=== PATIENT | male | born 1930 | race Caucasian/White ===

== ENCOUNTER 2016-07-28 21:31 | Emergency (ER) | payer MEDICARE, BC ==
[~2016-07-28] VITALS: Ht 182.9 cm; Wt 77.0 kg
[~2016-07-28 21:31] MED LIST: ALPR.5 PO; BUPR300T PO; MEMA28CA PO; PAXI10TA2 PO; TAMS5CAP PO
[2016-07-28 21:39] VITALS: BP 173/91; PULSE 82; RESP 18; TEMP 98.7; O2SAT 95
[2016-07-28 21:40] VITALS: RESP 18; O2SAT 95
[2016-07-28] MEDS ORDERED: SODIUM CHLORIDE 0.9% FLUSH 5 ML FLUSH IVF PRN (22:00)
[2016-07-28 22:43] LABS: BLOOD, URINE LARGE (NEG); GLUCOSE,URINE NEG (NEG); KETONE, URINE NEG (NEG); NITRITE,URINE NEG (NEG)
[2016-07-28 22:47] LABS: URINE COLOR STRAW (YELLW/STRAW)
[2016-07-28 22:47] LABS: AUTOMATED NEUTROPHIL # 6.9 TH/MM3 (1.8-7.7); BASOPHIL # 0.1 TH/MM3 (0-0.2); BASOPHIL % 1.6 % (0.0-2.0); EOSINOPHIL % 0.2 % (0.0-4.0); LYMPH % 10.9 % (9.0-44.0); MEAN CELL VOLUME 88.3 FL (80.0-100.0); MEAN CORPUSCULAR HEMOGLOBIN 28.7 PG (27.0-34.0); MEAN CORPUSCULAR HGB CONC 32.5 % (32.0-36.0); MONO % 8.7 % (0.0-8.0); NEUT % 78.6 % (16.0-70.0); PLATELET COUNT 226 TH/MM3 (150-450); RED BLOOD COUNT 4.65 MIL/MM3 (4.50-5.90); WHITE BLOOD COUNT 8.8 TH/MM3 (4.0-11.0)
[2016-07-28 22:48] LABS: COMMENT (UR) CULT NOT INDICATED; CULTURE IF INDICATED CULT NOT INDICATED; RBC, URINE 100-200 /hpf (0-3); SQUAMOUS EPITHELIAL CELL URINE 0-5 /hpf (0-5); WBC, URINE 0-2 /hpf (0-5)
[2016-07-28 22:49] LABS: HEMO FLAGS DIFF FINAL
[2016-07-28 22:52] LABS: CHLORIDE 104 MEQ/L (98-107); POTASSIUM 3.9 MEQ/L (3.5-5.1); SODIUM (NA) 140 MEQ/L (136-145)
[2016-07-28 22:54] VITALS: BP 114/84; PULSE 93; RESP 18; O2SAT 97
[2016-07-28 22:56] LABS: ANION GAP 10 MEQ/L (5-15); BICARBONATE 26.4 MEQ/L (21.0-32.0); BLOOD UREA NITROGEN 14 MG/DL (7-18); MAGNESIUM 1.9 MG/DL (1.5-2.5)
[2016-07-28 22:58] LABS: APTT (PATIENT) 26.9 SEC (24.3-30.1); PROTHROMBIN TIME - PATIENT 11.1 SEC (9.8-11.6)
[2016-07-28 22:59] LABS: ALT (GPT) 17 U/L (12-78); AST (GOT) 17 U/L (15-37); GLOMERULAR FILTRATION RATE 71 ML/MIN (>89)
[2016-07-28 23:01] LABS: TOTAL BILIRUBIN ADULT 0.6 MG/DL (0.2-1.0)
[2016-07-28 23:02] LABS: ALKALINE PHOSPHATASE 200 U/L (45-117)
--- NOTE | 2016-07-28 23:11 | RADHPO ---
EXAM DATE/TIME: 07/28/2016 22:44 [facility] COMPARISON: CHEST SINGLE AP, April 04, 2016, 12:24. INDICATIONS : Shortness of breath. MEDICAL HISTORY : None. SURGICAL HISTORY : None. ENCOUNTER: Initial ACUITY: 1 day PAIN SCORE: 0/10 LOCATION: Bilateral chest FINDINGS: A single view of the chest demonstrates the lungs to be symmetrically aerated without evidence of mas s, infiltrate or effusion. The cardiomediastinal contours are unremarkable. Osseous structures are intact. CONCLUSION: Normal examination. Stable widening of the left acromioclavicular joint. Nii Estrada MD on July 28, 2016 at 23:09 Board Certified Radiologist. This report was verified electronically.
[2016-07-28 23:12] LABS: CREATINE KINASE 46 U/L (39-308)
[2016-07-29 00:17] VITALS: BP 149/84; PULSE 86; RESP 18; O2SAT 97
--- NOTE | 2016-07-29 01:13 | RADHPO ---
EXAM DATE/TIME: 07/29/2016 00:59 [facility] COMPARISON: CT BRAIN W/O CONTRAST, April 04, 2016, 12:41. INDICATIONS : Dizziness and weakness. RADIATION DOSE: 67.98 CTDIvol (mGy) MEDICAL HISTORY : Hypertension. SURGICAL HISTORY : None. ENCOUNTER: Initial ACUITY: 1 day PAIN SCALE: 0/10 LOCATION: cranial TECHNIQUE: Multiple contiguous axial images were obtained of the head. Using automated exposure control and adj ustment of the mA and/or kV according to patient size, radiation dose was kept as low as reasonably a chievable to obtain optimal diagnostic quality images. FINDINGS: CEREBRUM: The ventricles are normal for age. No evidence of midline shift, mass lesion, hemorrhage or acute in farction. No extra-axial fluid collections are seen. POSTERIOR FOSSA: The cerebellum and brainstem are intact. The 4th ventricle is midline. The cerebellopontine angle i s unremarkable. EXTRACRANIAL: The visualized portion of the orbits is intact. SKULL: The calvaria is intact. No evidence of skull fracture. CONCLUSION: Normal examination. Diffuse atrophy is unchanged. Nii Estrada MD on July 29, 2016 at 1:11 Board Certified Radiologist. This report was verified electronically.
[2016-07-29 01:19] VITALS: BP 145/77; PULSE 75; RESP 18; O2SAT 97
[2016-07-29] MEDS ORDERED: SODIUM CHLORID 0.9% 500 ML INJ 500 ML IV ONE ×2 (02:00→02:45)
[2016-07-29 02:02] VITALS: BP_SYST 101; BP_SYST 108; BP_SYST 142; BP_DIAS 58; BP_DIAS 68; BP_DIAS 73; RESP 18
[2016-07-29 02:24] VITALS: BP 148/77; PULSE 73; RESP 18; TEMP 98.9; O2SAT 98
--- NOTE | 2016-07-29 02:36 | PD ---
HPI Chief Complaint: General Weakness Time Seen by Provider: 21:58 Travel History International Travel<30 days: No Contact w/Intl Traveler<30days: No Traveled to known affect area: No History of Present Illness HPI 86-year-old male presents to the emergency prior by EMS transport from home for complaint of generalized weakness. Patient has chronic weakness and issues with balance. Patient denies any new upper or lower extremity or unilateral weakness. Patient denies any change in mentation difficulty with speaking or facial weakness. Spouse at bedside. Patient denies any recent fall or injury. Patient denies fever or chills. Patient was recently seen by his primary care and his urologist for issues with blood in his urine. Patient denies any change or increase blood in his urine that he is aware of. Patient denies any dysuria frequency urgency or flank pain. Patient denies any abdominal pain. Patient denies chest pain or shortness of breath. Patient denies nausea or vomiting. Patient's had no cough congestion shortness of breath or sweats. Patient denies any recent respiratory illness. Patient states he just felt so weak that he decided to come to the hospital. Patient came to the hospital by EMS transport. Patient states that he's had no change in his medications. Patient's had recurrent urinary tract infections the past. Pain is 0/10 in intensity. PFSH Past Medical History Narrative Medical Arthritis anxiety depression intermittent atrial fibrillation atherosclerotic artery vascular disease CVA near-syncope first-degree heart block Hx Anticoagulant Therapy: Yes Arthritis: Yes Asthma: No Autoimmune Disease: No Blood Disorders: No Anxiety: Yes (OCD) Depression: Yes (sometimes depressed) Heart Rhythm Problems: Yes (A-Fib) Cancer: No Cardiovascular Problems: Yes High Cholesterol: No Chemotherapy: No Chest Pain: No Congestive Heart Failure: No COPD: No Cerebrovascular Accident: Yes Diabetes: No Diminished Hearing: No Endocrine: No Gastrointestinal Disorders: Yes (PRESENT DAY PROPBLEM CHEWING ) GERD: No Genitourinary: Yes Headaches: No Hiatal Hernia: No Hypertension: Yes Immune Disorder: No Implanted Vascular Access Dvce: Yes Kidney Stones: Yes Medical other: Yes (POOR HISTORIAN) Musculoskeletal: Yes (broken r. wrist 50 yrs ago, RECENT RT KNEE SURGERY) Neurologic: Yes Psychiatric: Yes (Bipolar) Reproductive: No Respiratory: No Immunizations Current: Yes Migraines: No Radiation Therapy: No Renal Failure: No Seizures: No Sickle Cell Disease: No Sleep Apnea: No Thyroid Disease: No Ulcer: No Tetanus Vaccination: Unknown Influenza Vaccination: Yes Past Surgical History Abdominal Surgery: No AICD: No Arteriovenous Shunt: No Body Medical Devices: stent r side dr luis BLADDER STIMULATOR Cardiac Surgery: No Ear Surgery: No Endocrine Surgery: No Eye Surgery: No Genitourinary Surgery: Yes (microwave for prostate to shrink it) Gynecologic Surgery: No Insulin Pump: No Joint Replacement: Yes (new tkr) Neurologic Surgery: No Oral Surgery: No Pacemaker: No Prostatectomy: Yes Thoracic Surgery: No Social History Alcohol Use: No Tobacco Use: No Substance Use: No Allergies-Medications (Allergen,Severity, Reaction): Coded Allergies: No Known Allergies (Verified , 07/28/16) Reported Meds & Prescriptions Reported Meds & Active Scripts Active Reported Xanax (Alprazolam) 0.5 Mg Tab 0.5 Mg PO HS Flomax (Tamsulosin HCl) 0.4 Mg Cap 0.4 Mg PO HS Paxil (Paroxetine HCl) 10 Mg Tab 10 Mg PO DAILY Namenda Xr (Memantine) 28 Mg Caper 28 Mg PO DAILY Bupropion HCl ER 24 HR (Bupropion HCl) 300 Mg Tab 300 Mg PO DAILY Review of Systems Except as stated in HPI: all other systems reviewed are Neg General / Constitutional: No: Fever, Chills HENT: No: Congestion Cardiovascular: No: Chest Pain or Discomfort, Palpitations, Diaphoresis Respiratory: No: Shortness of Breath Gastrointestinal: No: Nausea, Vomiting, Diarrhea, Abdominal Pain Genitourinary: No: Dysuria, Decreased Urinary Output, Flank Pain Musculoskeletal: No: Myalgias, Arthralgias Skin: No Rash Neurologic: Positive: Weakness, No: Dizziness, Syncope, Focal Abnormalities, Coordination Problem Psychiatric: No: Anxiety Hematologic/Lymphatic: No: Lymph Node Enlargement Physical Exam Narrative GENERAL: Well-developed well-nourished elderly male in no acute distress no respiratory distress able to sit up on his own without assistance; GCS 15 SKIN: Warm and dry. HEAD: Atraumatic. Normocephalic. EYES: Pupils equal and round. No scleral icterus. No injection or drainage. ENT: No nasal bleeding or discharge. Mucous membranes pink and moist. NECK: Trachea midline. No JVD. CARDIOVASCULAR: Regular rate and rhythm. RESPIRATORY: No accessory muscle use. Clear to auscultation. Breath sounds equal bilaterally. GASTROINTESTINAL: Abdomen soft, non-tender, nondistended. Hepatic and splenic margins not palpable. MUSCULOSKELETAL: Extremities without clubbing, cyanosis, or edema. No obvious deformities. NEUROLOGICAL: Awake and alert. No obvious cranial nerve deficits. Motor grossly within normal limits. Five out of 5 muscle strength in the arms and legs. No pronator drift. Normal speech. PSYCHIATRIC: Appropriate mood and affect; insight and judgment normal. Data Data Last Documented VS Vital Signs Date Time Temp Pulse Resp B/P Pulse Ox O2 Delivery O2 Flow Rate FiO2 07/29/16 03:59 62 18 134/66 97 07/29/16 02:24 98.9 Room Air Orders Complete Blood Count With Diff (07/28/16 21:58) Comprehensive Metabolic Panel (07/28/16 21:58) Act Partial Throm Time (Ptt) (07/28/16 21:58) Prothrombin Time / Inr (Pt) (07/28/16 21:58) Magnesium (Mg) (07/28/16 21:58) Ckmb (Isoenzyme) Profile (07/28/16 21:58) Troponin I (07/28/16 21:58) Urinalysis - C+S If Indicated (07/28/16 21:58) Influenzae A/B Antigen (07/28/16 21:58) Iv Access Insert/Monitor (07/28/16 21:58) Electrocardiogram (07/28/16 21:58) Ecg Monitoring (07/28/16 21:58) Oximetry (07/28/16 21:58) Oxygen Administration (07/28/16 21:58) Chest, Single Ap (07/28/16 21:58) Sodium Chloride 0.9% Flush (Ns Flush) (07/28/16 22:00) Blood Culture (07/28/16 21:58) Ct Brain W/O Iv Contrast(Rout) (07/29/16 ) Orthostatic Vital Signs (07/29/16 01:58) Sodium Chlorid 0.9% 500 Ml Inj (Ns 500 M (07/29/16 02:00) Sodium Chlorid 0.9% 500 Ml Inj (Ns 500 M (07/29/16 02:45) Labs Laboratory Tests Test 07/28/16 07/28/16 22:20 22:30 Urine Color STRAW Urine Turbidity SLIGHT Urine pH 7.0 Urine Specific [place] 1.021 Urine Protein 30 mg/dL Urine Glucose (UA) NEG mg/dL Urine Ketones NEG mg/dL Urine Occult Blood LARGE Urine Nitrite NEG Urine Bilirubin NEG Urine Leukocyte Esterase NEG Urine RBC 100-200 /hpf Urine WBC 0-2 /hpf Urine Squamous Epithelial 0-5 /hpf Cells Urine Bacteria NONE /hpf Microscopic Urinalysis Comment CULT NOT INDICATED White Blood Count 8.8 TH/MM3 Red Blood Count 4.65 MIL/MM3 Hemoglobin 13.4 GM/DL Hematocrit 41.0 % Mean Corpuscular Volume 88.3 FL Mean Corpuscular Hemoglobin 28.7 PG Mean Corpuscular Hemoglobin 32.5 % Concent Red Cell Distribution Width 14.0 % Platelet Count 226 TH/MM3 Mean Platelet Volume 6.9 FL Neutrophils (%) (Auto) 78.6 % Lymphocytes (%) (Auto) 10.9 % Monocytes (%) (Auto) 8.7 % Eosinophils (%) (Auto) 0.2 % Basophils (%) (Auto) 1.6 % Neutrophils # (Auto) 6.9 TH/MM3 Lymphocytes # (Auto) 1.0 TH/MM3 Monocytes # (Auto) 0.8 TH/MM3 Eosinophils # (Auto) 0.0 TH/MM3 Basophils # (Auto) 0.1 TH/MM3 CBC Comment DIFF FINAL Differential Comment Prothrombin Time 11.1 SEC Prothromb Time International 1.0 RATIO Ratio Activated Partial 26.9 SEC Thromboplast Time Sodium Level 140 MEQ/L Potassium Level 3.9 MEQ/L Chloride Level 104 MEQ/L Carbon Dioxide Level 26.4 MEQ/L Anion Gap 10 MEQ/L Blood Urea Nitrogen 14 MG/DL Creatinine 1.00 MG/DL Estimat Glomerular Filtration 71 ML/MIN Rate Random Glucose 101 MG/DL Calcium Level 8.3 MG/DL Magnesium Level 1.9 MG/DL Total Bilirubin 0.6 MG/DL Aspartate Amino Transf 17 U/L (AST/SGOT) Alanine Aminotransferase 17 U/L (ALT/SGPT) Alkaline Phosphatase 200 U/L Total Creatine Kinase 46 U/L Troponin I 0.02 NG/ML Total Protein 7.3 GM/DL Albumin 3.0 GM/DL [facility] Medical Decision Making Medical Screen Exam Complete: Yes Emergency Medical Condition: Yes Medical Record Reviewed: Yes Interpretation(s) CT brain w/o: per reading radiologist--no acute intracranial abnormalities identified; chronic diffuse atrophy; per Dr. Estrada EKG normal sinus rhythm rate 83 first-degree AV block no acute ST elevation or injury pattern change noted nonspecific septal T wave changes Laboratory Tests Test 07/28/16 07/28/16 22:20 22:30 Urine Color STRAW Urine Turbidity SLIGHT Urine pH 7.0 Urine Specific [place] 1.021 Urine Protein 30 mg/dL Urine Glucose (UA) NEG mg/dL Urine Ketones NEG mg/dL Urine Occult Blood LARGE Urine Nitrite NEG Urine Bilirubin NEG Urine Leukocyte Esterase NEG Urine RBC 100-200 /hpf Urine WBC 0-2 /hpf Urine Squamous Epithelial 0-5 /hpf Cells Urine Bacteria NONE /hpf Microscopic Urinalysis Comment CULT NOT INDICATED White Blood Count 8.8 TH/MM3 Red Blood Count 4.65 MIL/MM3 Hemoglobin 13.4 GM/DL Hematocrit 41.0 % Mean Corpuscular Volume 88.3 FL Mean Corpuscular Hemoglobin 28.7 PG Mean Corpuscular Hemoglobin 32.5 % Concent Red Cell Distribution Width 14.0 % Platelet Count 226 TH/MM3 Mean Platelet Volume 6.9 FL Neutrophils (%) (Auto) 78.6 % Lymphocytes (%) (Auto) 10.9 % Monocytes (%) (Auto) 8.7 % Eosinophils (%) (Auto) 0.2 % Basophils (%) (Auto) 1.6 % Neutrophils # (Auto) 6.9 TH/MM3 Lymphocytes # (Auto) 1.0 TH/MM3 Monocytes # (Auto) 0.8 TH/MM3 Eosinophils # (Auto) 0.0 TH/MM3 Basophils # (Auto) 0.1 TH/MM3 CBC Comment DIFF FINAL Differential Comment Prothrombin Time 11.1 SEC Prothromb Time International 1.0 RATIO Ratio Activated Partial 26.9 SEC Thromboplast Time Sodium Level 140 MEQ/L Potassium Level 3.9 MEQ/L Chloride Level 104 MEQ/L Carbon Dioxide Level 26.4 MEQ/L Anion Gap 10 MEQ/L Blood Urea Nitrogen 14 MG/DL Creatinine 1.00 MG/DL Estimat Glomerular Filtration 71 ML/MIN Rate Random Glucose 101 MG/DL Calcium Level 8.3 MG/DL Magnesium Level 1.9 MG/DL Total Bilirubin 0.6 MG/DL Aspartate Amino Transf 17 U/L (AST/SGOT) Alanine Aminotransferase 17 U/L (ALT/SGPT) Alkaline Phosphatase 200 U/L Total Creatine Kinase 46 U/L Troponin I 0.02 NG/ML Total Protein 7.3 GM/DL Albumin 3.0 GM/DL Last Impressions Chest X-Ray 07/28/16 2878 Signed Impressions: Service Date/Time: Thursday, July 28, 2016 22:44 - CONCLUSION: Normal examination. Stable widening of the left acromioclavicular joint. Nii Estrada MD Differential Diagnosis Generalized weakness, UTI, arrhythmia, electronic disturbance, ACS, TIA, SIRS, sepsis, dehydration, adverse medication reaction Narrative Course Patient placed on shower screen installer IV access obtained specimens collected and sent for resulting CBC is automated differential metabolic panel urinalysis cardiac enzymes eyes grossly within normal range patient has had microscopic and gross hematuria and is followed by Dr. Luis no evidence for UTI at this time Patient resting without any concerns or complaints Orthostatic measurements performed;Patient noted to have significant change in blood pressure from supine to sitting to standing and feels a little shaky or weak with standing; patient given bolus of normal saline and taking oral hydration well. At 2:45 AM after IV fluids and oral hydration patient feels well desirous of being discharged home upon standing no longer symptomatic. At this time spouse and patient does admit that he has not been taking oral hydration well although dietary intake for meals has been fairly normal. Diagnosis Primary Impression: Weakness generalized Additional Impressions: Dehydration H/O hematuria Referrals: Primary Care Physician 1 day Urologist call for appointment Follow-up with your urologist as planned; Dr Luis Patient Instructions: General Instructions Additional Instructions: Increase fluid hydration Monitor temperature every 4 hours with thermometer take as needed acetaminophen/ Tylenol for fever 100.4F or greater Return to the emergency department for any concerns or change in condition Follow-up with your primary care physician call office on Saturday to schedule follow-up appointment Med/Other Pt SpecificInfo: No Change to Meds Disposition: 01 DISCHARGE HOME Condition: Stable Arlette Toscano MD Jul 29, 2016 02:36
[2016-07-29 03:59] VITALS: BP 134/66
--- NOTE | 2016-07-29 13:33 | EKG ---
Date Performed: 07/28/2016 Time Performed: 21:31:40 PTAGE: 86 years EKG: Sinus rhythm with 1st degree A-V block. Septal T wave changes are nonspecific Since previous tracing, no signific ant change noted Abnormal ECG PREVIOUS TRACING : 04/04/2016 12.29 DOCTOR: Carly Degroot Interpretating Date/Time 07/29/2016 13:29:56
[2016-09-03] MEDS ORDERED: ASPI-147 PO (15:32)
== END 2016-07-29 04:02 | disposition home or self-care (01) ==
LOC: PHED 21:31
DX: R53.1 Weakness (principal); E86.0 Dehydration; R31.9 Hematuria, unspecified; R94.31 Abnormal electrocardiogram [ECG] [EKG]; I48.91 Unspecified atrial fibrillation; M19.90 Unspecified osteoarthritis, unspecified site; Z79.01 Long term (current) use of anticoagulants; F41.9 Anxiety disorder, unspecified; I10 Essential (primary) hypertension
CPT/HCPCS: 70450; 71010; 80053; 81001; 82550; 83735; 84484; 85025; 85610; 85730; 87040; 87804; 93005; 96360; 99285; J7040

== ENCOUNTER → 2016-09-03 | Outpatient (CLI) | payer MEDICARE, BC ==
[~2016-09-03] MED LIST changes: +ASPI-147 PO
[2016-09-03 14:42] LABS: AUTOMATED NEUTROPHIL # 3.8 TH/MM3 (1.8-7.7); BASOPHIL % 0.3 % (0.0-2.0); EOSINOPHIL # 0.1 TH/MM3 (0-0.4); HEMATOCRIT 36.6 % (39.0-51.0); HEMO FLAGS DIFF FINAL; LYMPH % 18.7 % (9.0-44.0); MEAN CELL VOLUME 89.4 FL (80.0-100.0); MEAN CORPUSCULAR HEMOGLOBIN 29.5 PG (27.0-34.0); MONO % 10.9 % (0.0-8.0); NEUT % 68.1 % (16.0-70.0); PLATELET COUNT 207 TH/MM3 (150-450); RED CELL DISTRIBUTION WIDTH 14.8 % (11.6-17.2); WHITE BLOOD COUNT 5.5 TH/MM3 (4.0-11.0)
== END ==
LOC: CPRE 12:18
PROVIDERS: ATTEND Ophthalmology
DX: Z01.812 Encounter for preprocedural laboratory examination (principal); H25.9 Unspecified age-related cataract
CPT/HCPCS: 36415; 85025

== ENCOUNTER → 2016-09-17 | Day surgery (SDC) | payer MEDICARE, BC ==
--- NOTE | 2016-09-04 13:04 | MH ---
cc: [facility] ARREOLA DATE OF ADMISSION 09/17/2016 ADMITTING DIAGNOSIS Cataract left eye HISTORY OF PRESENT ILLNESS This 86-year-old white male is coming through [facility] surgery for the purpose of a lens extraction of the left eye with intraocular lens implant under local anesthesia. He has noted decreasing visual acuity interfering with his daily activities and elected to have the above procedure. His best corrected visual acuity in room light is 20/40 -1 in each eye. PAST MEDICAL HISTORY The patient has a history of: 1. Cerebrovascular accident 2. Atrial fibrillation 3. Irregular heartbeat 4. Benign prostate hypertrophy 5. Balance problems 6. Kidney stones 7. Hypertension 8. Diverticulitis 9. Spinal stenosis 10. Coronary artery disease 11. Incontinence PAST SURGICAL HISTORY Includes: 1. Heart catheterization 2. Colonoscopy 3. Transurethral microwave therapy 4. Stimulator in the urinary tract 5. Bladder stent 6. 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 MEDICATIONS Daily medications include: 1. Bupropion 2. Namenda 3. Ecotrin 4. Paxil 5. Flomax 6. Xanax ALLERGIES He has no known allergies. SOCIAL HISTORY He does not smoke or drink. FAMILY HISTORY Positive for father with cataracts. REVIEW OF SYSTEMS HEAD: Patient denies severe headaches, dizziness or recent head injury. EARS: Patient denies hearing loss, ear pain, discharge or ringing in the ears. NOSE: Patient denies nasal discharge, obstruction or frequent colds. MOUTH AND THROAT: Patient denies soreness of the mouth or tongue, bleeding gums, trouble swallowing, changes in voice or sore throat. NECK: Patient denies neck pain or swelling, limitation of neck movement or neck injury. CARDIOPULMONARY SYSTEM: Denies shortness of breath, orthopnea, chronic cough, sputum production, hemoptysis, chest pain, wheezing, or light-headedness. GI SYSTEM: Patient denies poor appetite, nausea, vomiting, abdominal pain, ulcers. He has had hemorrhoids and change in bowel habits secondary to medications. SYSTEM: The patient has a history of urinary frequency due to bladder and prostate issue. Dysuria, change in urine color. NERVOUS SYSTEM: Patient had a stroke in 2013, but denies convulsions, vertigo, numbness or weakness. PHYSICAL EXAMINATION VITAL SIGNS: Blood pressure is 128/78, pulse 60, respirations 20. HEAD: Normocephalic, atraumatic. NOSE: Without rhinorrhea. THROAT: Clear. NECK: Supple. CHEST: Clear. HEART: Regular rhythm. ABDOMEN: Without tenderness. EXTREMITIES: With varicose veins and he wears stockings for that. MENTAL STATUS: Within normal limits. EYES EXAM The patient's best corrected visual acuity is 20/40 -1 in each eye in room light. Visual lo are full to confrontation testing. Extraocular muscle exam reveals full versions with orthophoria at distance and near. Pupils are 3 mm equal, round, reactive to light without afferent defect. Anterior segment examination reveals nuclear sclerotic cortical and posterior subcapsular cataract changes bilaterally. Intraocular pressure is 19 in the right eye and 20 in the left by applanation tonometry. Dilated fundus exam reveals sharp disks with cup-to-disk ratio 0.35 in the right eye and 0.45 in the left. There are some focal scars in the macula of each eye and focal laser in the background. There is a posterior vitreous detachment present bilaterally. IMPRESSION 1. Bilateral cataracts 2. Posterior vitreous detachment both eyes 3. Status post branch retinal vein occlusion with focal laser treatments in both eyes. His retinal specialist Dr. Ordaz has cleared him for cataract surgery from a retinal standpoint. PLAN The plan is lens extraction of the left eye with intraocular lens implant under local anesthesia through [facility] surgery. Iris retractors will be used in this patient who takes Tamsulosin or Flomax regularly. The patient has been cleared medically. He has been counseled as to the risks, benefits and alternatives and elected to proceed. I feel that cataract surgery will improve the quality of life and activities of daily living in this patient. MD BONITA Marcus/RONALD /12:34 PM /12:54 PM
[~2016-09-17] VITALS: Ht 182.9 cm; Wt 79.5 kg
[~2016-09-17] MED LIST changes: +ACETYLCHOLINE CHL OPHT SOLN 1:100 2 ML VIAL ONE; +CYCLOPENTOLATE HCL 1% OPHT SOLN 2 ML BTL ONE; +DICLOFENAC SOD 0.1% OPHT SOLN 2.5 ML BTL ONE; +EPINEPHrine HCL (1:1000) 30 MG/30 ML VIAL ONE; +GATIFLOXACIN 0.5% OPHT SOLN 2.5 ML BTL ONE; +HYALURONIDASE/LIDOCAINE/BUPIVACAINE 4.5 ML SYR ONE; +HYALURONIDASE/LIDOCAINE/BUPIVACAINE 6 ML SYR ONE; +PHENYLEPHRINE HCL 2.5% OPTH SOLN 2 ML BTL ONE; +PROPARACAINE HCL 0.5% OPHT SOLN 15 ML BTL ONE; +PROPOFOL 200 MG/20 ML AMP ONE; +SODIUM CHLORID 0.9% 500 ML INJ 500 ML ONE; +TOBRAMYCIN 0.3%/DEXAMETHASONE 0.1% OPHT SUSP 5 ML BTL ONE; +TROPICAMIDE 1% OPHT SOLN 15 ML BTL ONE; +VISCOAT OPHT IRRIG SOLN 0.75 ML SYRINGE LEFT EYE ONE
[2016-09-17 08:45] VITALS: BP 184/90; PULSE 54; RESP 18; TEMP 97.7; O2SAT 96
[2016-09-17 08:50] VITALS: PULSE 54
[2016-09-17 09:30] VITALS: PULSE 53
[2016-09-17] MEDS: PILOCARPINE HCL 2% OPHT SOLN 15 ML BTL ONE ×2 (10:59→11:43)
[2016-09-17] MEDS: TOBRAMYCIN/DEXAMETHASONE OPTH OINT 3.5 GM TUBE ONE ×2 (11:00→11:43)
[2016-09-17 12:30] VITALS: BP 152/84; PULSE 56; RESP 18; TEMP 98; O2SAT 98
--- NOTE | 2016-09-17 12:33 | MP ---
cc: [facility] DATE OF SURGERY September 17, 2016 PREOPERATIVE DIAGNOSIS: Cataract left eye. POSTOPERATIVE DIAGNOSIS: Cataract left eye. OPERATION: Extracapsular cataract extraction with posterior chamber intraocular lens implant by phacoemulsification, left eye. SURGEON: Cha Ford M.D. ANESTHESIA: Local. COMPLICATIONS: None. INDICATIONS: See history and physical previously dictated. OPERATIVE PROCEDURE: The patient had adequate retrobulbar and eyelid blocks administered in the holding area and was brought to the operating room. The left eye was prepped and draped in the usual sterile ophthalmic manner. A lid speculum was inserted in the left eye. A 4-0 silk bridle suture was placed through the conjunctiva near the superior rectus muscle and it was tagged to the drape. A fornix-based conjunctival flap was prepared spanning approximately 5 mm in width. Hemostasis was obtained with wet-field cautery. A 3.5 mm groove was made 1 mm from the limbus and dissected up to the limbus in the form of a scleral pocket incision. A stab incision was then made at the 2 o'clock position. Viscoelastic was injected into the anterior chamber. In order to maintain an adequately dilated pupil, it was elected to use iris retractors in this case. Stab incisions were made at the 1 o'clock, 3 o'clock, 5 o'clock, 8 o'clock and 10 o'clock positions. Iris retractors were then inserted through the stab incisions in the peripheral cornea and positioned to enlarge the size of the pupil. The anterior chamber was entered with a 2.75 mm keratome through the scleral pocket incision. A 360 degree continuous curvilinear capsulorrhexis was then performed. Hydrodissection was utilized to divide the nucleus into inner and outer components and to separate the cortex from the capsule. Phacoemulsification was then utilized to remove the nucleus. The outer nuclear layer was removed with irrigation and aspiration and short bursts of ultrasound as necessary. The cortex was removed with the irrigation-aspiration handpiece. The posterior capsule was polished with the capsule polisher. Viscoelastic was injected into the capsular bag. The intraocular lens was inspected and found to be in good condition. The lens utilized was an Adam, model SA60AT with a power of +20.5 diopters. The lens was inserted into the capsular bag. The five iris retractors were removed. The viscoelastic in the anterior chamber was then removed with the irrigation-aspiration hand piece. Viscoelastic was also removed from beneath the intraocular lens. The anterior chamber was filled with Miochol-E through the stab incision and pressurized. The wound was checked for leaks at this pressure and normalized pressure and there were none. The 4-0 bridle suture was removed. The conjunctival flap was brought down over the wound and secured with cautery. Pilocarpine 2% eye drops were instilled topically. The lid speculum was removed. TobraDex ophthalmic ointment was applied. The eye was double patched and shielded. The patient tolerated the procedure well and left the Operating Room in satisfactory condition. MD BONITA Marcus/NEFTALI /11:54 AM /12:30 PM
== END | disposition home or self-care (01) ==
LOC: CSDC 07:49
PROVIDERS: ATTEND Ophthalmology
DX: H26.9 Unspecified cataract (principal); I48.91 Unspecified atrial fibrillation; I10 Essential (primary) hypertension
CPT/HCPCS: 00142; 66984; J0171; J7040; V2632

== ENCOUNTER → 2016-11-12 | Outpatient (CLI) | payer MEDICARE, BC ==
[~2016-11-12] MED LIST changes: -ACETYLCHOLINE CHL OPHT SOLN 1:100 2 ML VIAL ONE; -CYCLOPENTOLATE HCL 1% OPHT SOLN 2 ML BTL ONE; -DICLOFENAC SOD 0.1% OPHT SOLN 2.5 ML BTL ONE; -EPINEPHrine HCL (1:1000) 30 MG/30 ML VIAL ONE; -GATIFLOXACIN 0.5% OPHT SOLN 2.5 ML BTL ONE; -HYALURONIDASE/LIDOCAINE/BUPIVACAINE 4.5 ML SYR ONE; -HYALURONIDASE/LIDOCAINE/BUPIVACAINE 6 ML SYR ONE; -PHENYLEPHRINE HCL 2.5% OPTH SOLN 2 ML BTL ONE; -PROPARACAINE HCL 0.5% OPHT SOLN 15 ML BTL ONE; -PROPOFOL 200 MG/20 ML AMP ONE; -SODIUM CHLORID 0.9% 500 ML INJ 500 ML ONE; -TOBRAMYCIN 0.3%/DEXAMETHASONE 0.1% OPHT SUSP 5 ML BTL ONE; -TROPICAMIDE 1% OPHT SOLN 15 ML BTL ONE; -VISCOAT OPHT IRRIG SOLN 0.75 ML SYRINGE LEFT EYE ONE
[2016-11-12 10:56] LABS: HEMATOCRIT 39.6 % (39.0-51.0); MEAN CELL VOLUME 91.2 FL (80.0-100.0); MEAN CORPUSCULAR HEMOGLOBIN 29.7 PG (27.0-34.0); MEAN CORPUSCULAR HGB CONC 32.5 % (32.0-36.0); PLATELET COUNT 179 TH/MM3 (150-450); RED BLOOD COUNT 4.34 MIL/MM3 (4.50-5.90); RED CELL DISTRIBUTION WIDTH 14.3 % (11.6-17.2); REVIEW FLAG FINAL; WHITE BLOOD COUNT 5.6 TH/MM3 (4.0-11.0)
== END ==
LOC: PHPRE 09:44
PROVIDERS: ATTEND Ophthalmology
DX: Z01.812 Encounter for preprocedural laboratory examination (principal)
CPT/HCPCS: 36415; 85027

== ENCOUNTER → 2016-11-19 | Day surgery (SDC) | payer MEDICARE, BC ==
--- NOTE | 2016-11-13 08:47 | MH ---
cc: CHA ARREOLA DATE OF ADMISSION 11/19/2016 ADMISSION DIAGNOSIS Cataract right eye HISTORY OF PRESENT ILLNESS This 86-year-old white male is coming through [facility] for the purpose of a lens extraction of the right eye with intraocular lens implant under local anesthesia. He had the similar procedure in his left eye in August, did well postoperatively and now is requesting cataract surgery for his right eye. His best corrected visual acuity is 20/70 -1 in the right eye in room light and 20/40 -2 in the left. PAST MEDICAL HISTORY The patient has multiple medical problems includin. History of cerebrovascular accident in the past 2. Atrial fibrillation 3. Irregular heartbeat 4. Benign prostate hypertrophy 5. Balance problems 6. Kidney stones 7. Hypertension 8. Diverticulitis 9. Spinal stenosis 10. Coronary artery disease 11. Incontinence PAST SURGICAL HISTORY Includes: 1. Heart catheterization 2. Colonoscopy 3. Transurethral microwave therapy for the prostate 4. 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 Stimulator for urinary problems. 6. Bladder stent in urethra MEDICATIONS Daily medications include: 1. Bupropion 2. Namenda 3. Ecotrin 4. Paxil 5. Flomax 6. Xanax. ALLERGIES He has no known allergies. SOCIAL HISTORY The patient does not smoke or drink. FAMILY HISTORY Positive for father with cataract. REVIEW OF SYSTEMS HEAD: Patient denies severe headaches, dizziness or recent head injury. EARS: Patient denies hearing loss, ear pain, discharge or ringing in the ears. NOSE: Patient denies nasal discharge, obstruction or frequent colds. MOUTH AND THROAT: Patient denies soreness of the mouth or tongue, bleeding gums, trouble swallowing, changes in voice or sore throat. NECK: Patient denies neck pain or swelling, limitation of neck movement or neck injury. CARDIOPULMONARY SYSTEM: Denies shortness of breath, orthopnea, chronic cough, sputum production, hemoptysis, chest pain, wheezing, or light-headedness. GI SYSTEM: Patient denies poor appetite, nausea, vomiting, abdominal pain, or ulcers. Bowel habits change secondary to his medications. He does have a history of hemorrhoids. SYSTEM: The patient does have urinary frequency day and night due to bladder and prostate issues. Denies change in the color of his urine. NERVOUS SYSTEM: He had the stroke in 2013. Patient denies convulsions, vertigo, stroke, numbness or weakness. PHYSICAL EXAMINATION Blood pressure is 132/80, pulse 56, respirations 16. HEAD: Normocephalic, atraumatic. NOSE: Without rhinorrhea. THROAT: Clear. NECK: Supple. HEART: Regular rhythm. ABDOMEN: Without tenderness. EXTREMITIES: With varicose veins and wears stockings. NEUROLOGIC: Within normal limits. MENTAL STATUS: Within normal limits. EYE EXAMINATION The patient's best corrected visual acuity is 20/70 -1 in the right eye in room light and 20/40 -2 in the left. Visual lo are full to confrontation testing. Extraocular muscle exam reveals full versions with orthophoria at distance and near. Pupils are 3 mm equal, round, reactive to light without afferent defect. Anterior segment examination reveals a nuclear sclerotic and cortical cataract in the right eye and a posterior chamber intraocular lens in the left. Intraocular pressure is 20 in the right eye and 21 in the left by applanation tonometry. Dilated fundus exam revealed sharp disks with cup-to-disk ratio of 0.35 in the right eye and 0.45 in the left. The macula shows some focal laser treatment in the areas of previous branch retinal vein occlusion which were superior in the right eye and the inferior in the left. A posterior vitreous detachment is present bilaterally. IMPRESSION 1. Cataract right eye. 2. Pseudophakia left eye. 3. Posterior vitreous detachment both eyes 4. Status post branch retinal vein occlusion both eyes with focal laser treatment bilaterally. PLAN The plan is lens extraction of the right eye with intraocular lens implant under local anesthesia through [facility]. Iris retractors will be used in this patient who is on Flomax and the pupil does not dilate well. The patient has been cleared medically. He has been counseled as to the risks, benefits and alternatives and elected to proceed. I feel that cataract surgery will improve the quality of life and activity of daily living in this patient. MD BONITA Marcus/RONALD /7:37 AM /8:36 AM
[~2016-11-19] VITALS: Ht 182.9 cm; Wt 73.0 kg
[~2016-11-19] MED LIST changes: +ACETYLCHOLINE CHL OPHT SOLN 1:100 2 ML VIAL I-OCULAR ONE; +CYCLOPENTOLATE HCL 1% OPHT SOLN 2 ML BTL ONE; +DICLOFENAC SOD 0.1% OPHT SOLN 2.5 ML BTL ONE; +EPINEPHrine HCL (1:1000) 1 MG/ML VIAL OTHER ONE; +GATIFLOXACIN 0.5% OPHT SOLN 2.5 ML BTL ONE; +HYALURONIDASE/LIDOCAINE/BUPIVACAINE 4.5 ML SYR ONE; +HYALURONIDASE/LIDOCAINE/BUPIVACAINE 6 ML SYR ONE; +PHENYLEPHRINE HCL 2.5% OPTH SOLN 2 ML BTL ONE; +PILOCARPINE HCL 2% OPHT SOLN 15 ML BTL RIGHT EYE ONE; +PROPARACAINE HCL 0.5% OPHT SOLN 15 ML BTL ONE; +PROPOFOL 200 MG/20 ML AMP ONE; +SODIUM CHLORID 0.9% 500 ML INJ 500 ML ONE; +TOBRAMYCIN/DEXAMETHASONE OPTH OINT 3.5 GM TUBE RIGHT EYE ONE; +TROPICAMIDE 1% OPHT SOLN 15 ML BTL ONE
[2016-11-19 08:05] VITALS: BP 187/97; PULSE 57; RESP 20; TEMP 97.8; O2SAT 99
[2016-11-19 08:15] VITALS: PULSE 93
[2016-11-19 08:30] VITALS: PULSE 60
[2016-11-19 10:04] VITALS: TEMP 97.8
[2016-11-19 10:34] VITALS: BP 173/74; PULSE 51; RESP 16; O2SAT 97
--- NOTE | 2016-11-20 17:12 | MP ---
cc: CHA FORD DATE OF SURGERY 11/19/16 POSTOPERATIVE DIAGNOSIS: Cataract right eye. OPERATION: Extracapsular cataract extraction with posterior chamber intraocular lens implant by phacoemulsification, right eye. SURGEON: Cha Ford M.D. ANESTHESIA: Local. COMPLICATIONS: None. INDICATIONS: See history and physical previously dictated. OPERATIVE PROCEDURE: The patient had adequate retrobulbar and eyelid blocks administered in the holding area and was brought to the operating room. The right eye was prepped and draped in the usual sterile ophthalmic manner. A lid speculum was inserted in the right eye. A 4-0 silk bridle suture was placed through the conjunctiva near the superior rectus muscle and it was tagged to the drape. A fornix-based conjunctival flap was prepared spanning approximately 5 mm in width. Hemostasis was obtained with wet-field cautery. A 3.5 mm groove was made 1 mm from the limbus and dissected up to the limbus in the form of a scleral pocket incision. A stab incision was then made at the 2 o'clock position. Viscoelastic was injected into the anterior chamber. In order to maintain an adequately dilated pupil, it was elected to use iris retractors in this case. Stab incisions were made at the 1 o'clock, 3 o'clock, 5 o'clock, 8 o'clock and 10 o'clock positions. Iris retractors were then inserted through the stab incisions in the peripheral cornea and positioned to enlarge the size of the pupil. The anterior chamber was entered with a 2.75 mm keratome through the scleral pocket incision. A 360 degree continuous curvilinear capsulorrhexis was then performed. Hydrodissection was utilized to divide the nucleus into inner and outer components and to separate the cortex from the capsule. Phacoemulsification was then utilized to remove the nucleus. The outer nuclear layer was removed with irrigation and aspiration and short bursts of ultrasound as necessary. The cortex was removed with the irrigation-aspiration handpiece. The posterior capsule was polished with the capsule polisher. Viscoelastic was injected into the capsular bag. The intraocular lens was inspected and found to be in good condition. The lens utilized was a Adam, model SA60AT with a power of +20.5 diopters. The lens was inserted into the capsular bag. The five iris retractors were removed. The viscoelastic in the anterior chamber was then removed with the irrigation-aspiration hand piece. Viscoelastic was also removed from beneath the intraocular lens. The anterior chamber was filled with Miochol-E through the stab incision and pressurized. The wound was checked for leaks at this pressure and normalized pressure and there were none. The 4-0 bridle suture was removed. The conjunctival flap was brought down over the wound and secured with cautery. Pilocarpine 2% eye drops were instilled topically. The lid speculum was removed. TobraDex ophthalmic ointment was applied. The eye was double patched and shielded. The patient tolerated the procedure well and left the Operating Room in satisfactory condition. MD BONITA Marcus/ /10:09 AM /5:09 PM
== END | disposition home or self-care (01) ==
LOC: PHSDC 06:56
PROVIDERS: ATTEND Ophthalmology
DX: H26.9 Unspecified cataract (principal); H43.813 Vitreous degeneration, bilateral; I10 Essential (primary) hypertension; I48.91 Unspecified atrial fibrillation; I25.10 Atherosclerotic heart disease of native coronary artery without angina pectoris; N40.0 Benign prostatic hyperplasia without lower urinary tract symptoms; Z86.73 Personal history of transient ischemic attack (TIA), and cerebral infarction without residual deficits; Z79.82 Long term (current) use of aspirin
CPT/HCPCS: 00142; 66984; J0171; J7040; V2632

== ENCOUNTER 2017-02-03 15:50 | Emergency (ER) | payer MEDICARE, BC ==
[~2017-02-03 15:50] MED LIST changes: -ACETYLCHOLINE CHL OPHT SOLN 1:100 2 ML VIAL I-OCULAR ONE; -CYCLOPENTOLATE HCL 1% OPHT SOLN 2 ML BTL ONE; -DICLOFENAC SOD 0.1% OPHT SOLN 2.5 ML BTL ONE; -EPINEPHrine HCL (1:1000) 1 MG/ML VIAL OTHER ONE; -GATIFLOXACIN 0.5% OPHT SOLN 2.5 ML BTL ONE; -HYALURONIDASE/LIDOCAINE/BUPIVACAINE 4.5 ML SYR ONE; -HYALURONIDASE/LIDOCAINE/BUPIVACAINE 6 ML SYR ONE; -PHENYLEPHRINE HCL 2.5% OPTH SOLN 2 ML BTL ONE; -PILOCARPINE HCL 2% OPHT SOLN 15 ML BTL RIGHT EYE ONE; -PROPARACAINE HCL 0.5% OPHT SOLN 15 ML BTL ONE; -PROPOFOL 200 MG/20 ML AMP ONE; -SODIUM CHLORID 0.9% 500 ML INJ 500 ML ONE; -TOBRAMYCIN/DEXAMETHASONE OPTH OINT 3.5 GM TUBE RIGHT EYE ONE; -TROPICAMIDE 1% OPHT SOLN 15 ML BTL ONE
[2017-02-03 15:55] VITALS: BP 193/94; PULSE 58; RESP 18; TEMP 97.8; O2SAT 95
[2017-02-03] MEDS ORDERED: SODIUM CHLORIDE 0.9% FLUSH 10 ML FLUSH IV FLUSH PRN (19:15)
[2017-02-03 19:17] LABS: BACTERIA, URINE RARE /hpf; BLOOD, URINE LARGE (NEG); COMMENT (UR) CULTURE INDICATED; CULTURE IF INDICATED CULTURE INDICATED; GLUCOSE,URINE NEG (NEG); KETONE, URINE 10 mg/dL (NEG); NITRITE,URINE NEG (NEG); URINE COLOR RED (YELLW/STRAW)
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
[2017-02-03 19:41] VITALS: O2SAT 100
[2017-02-03 19:42] VITALS: BP 229/107; PULSE 53; RESP 16; O2SAT 100
[2017-02-03] MEDS ORDERED: cefTRIAXone INJ 1,000 MG in SODIUM CHLORIDE 0.9% INJ 100 ML IV ONE (20:00)
[2017-02-03 20:07] LABS: AUTOMATED NEUTROPHIL # 3.5 TH/MM3 (1.8-7.7); BASOPHIL % 0.4 % (0.0-2.0); EOSINOPHIL # 0.1 TH/MM3 (0-0.4); EOSINOPHIL % 1.5 % (0.0-4.0); HEMO FLAGS DIFF FINAL; LYMPH % 25.2 % (9.0-44.0); LYMPHOCYTE # 1.4 TH/MM3 (1.0-4.8); MEAN CELL VOLUME 91.2 FL (80.0-100.0); MEAN CORPUSCULAR HEMOGLOBIN 29.7 PG (27.0-34.0); MEAN CORPUSCULAR HGB CONC 32.6 % (32.0-36.0); MONO % 11.1 % (0.0-8.0); NEUT % 61.8 % (16.0-70.0); PLATELET COUNT 179 TH/MM3 (150-450); RED BLOOD COUNT 4.49 MIL/MM3 (4.50-5.90); RED CELL DISTRIBUTION WIDTH 14.5 % (11.6-17.2); WHITE BLOOD COUNT 5.6 TH/MM3 (4.0-11.0)
[2017-02-03 20:17] LABS: APTT (PATIENT) 32.2 SEC (24.3-30.1); PROTHROMBIN TIME - PATIENT 11.4 SEC (9.8-11.6)
[2017-02-03 20:19] LABS: ALT (GPT) 17 U/L (12-78); ANION GAP 4 MEQ/L (5-15); AST (GOT) 28 U/L (15-37); BICARBONATE 30.5 MEQ/L (21.0-32.0); BLOOD UREA NITROGEN 18 MG/DL (7-18); CHLORIDE 105 MEQ/L (98-107); GLOMERULAR FILTRATION RATE 64 ML/MIN (>89); POTASSIUM 4.5 MEQ/L (3.5-5.1); SODIUM (NA) 139 MEQ/L (136-145)
[2017-02-03 20:22] LABS: ALKALINE PHOSPHATASE 250 U/L (45-117); TOTAL BILIRUBIN ADULT 0.5 MG/DL (0.2-1.0)
[2017-02-03] MEDS ORDERED: MACR100C2 PO (21:24)
== END 2017-02-03 22:20 | disposition home or self-care (01) ==
LOC: NEPD 15:50
DX: N39.0 Urinary tract infection, site not specified (principal); I48.91 Unspecified atrial fibrillation; M13.80 Other specified arthritis, unspecified site; I10 Essential (primary) hypertension; F42.9 Obsessive-compulsive disorder, unspecified; Z79.899 Other long term (current) drug therapy; Z86.73 Personal history of transient ischemic attack (TIA), and cerebral infarction without residual deficits; Z79.82 Long term (current) use of aspirin
CPT/HCPCS: 80053; 81001; 85025; 85610; 85730; 86403; 87086; 87186; 96365; 96366; 99284; J0696

== ENCOUNTER 2017-04-12 21:53 | Emergency (ER) | payer MEDICARE, BC ==
[~2017-04-12] VITALS: Ht 182.9 cm; Wt 73.0 kg
[~2017-04-12 21:53] MED LIST changes: +MACR100C2 PO
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
[2017-04-12 22:10] VITALS: BP 212/104; PULSE 94; RESP 18; O2SAT 98
[2017-04-12] MEDS ORDERED: ACETAMINOPHEN 500 MG CPLT PO ONE (22:45)
[2017-04-12 22:46] VITALS: TEMP 99.6
[2017-04-12 23:20] VITALS: BP 156/85; PULSE 83; RESP 18; O2SAT 98
[2017-04-12 23:37] LABS: AUTOMATED NEUTROPHIL # 5.5 TH/MM3 (1.8-7.7); BASOPHIL # 0.1 TH/MM3 (0-0.2); BASOPHIL % 1.2 % (0.0-2.0); EOSINOPHIL % 0.4 % (0.0-4.0); HEMATOCRIT 44.3 % (39.0-51.0); HEMO FLAGS DIFF FINAL; LYMPH % 8.9 % (9.0-44.0); LYMPHOCYTE # 0.6 TH/MM3 (1.0-4.8); MEAN CELL VOLUME 93.2 FL (80.0-100.0); MEAN CORPUSCULAR HEMOGLOBIN 30.2 PG (27.0-34.0); MEAN CORPUSCULAR HGB CONC 32.4 % (32.0-36.0); MONO % 11.6 % (0.0-8.0); NEUT % 77.9 % (16.0-70.0); PLATELET COUNT 186 TH/MM3 (150-450); RED BLOOD COUNT 4.75 MIL/MM3 (4.50-5.90); RED CELL DISTRIBUTION WIDTH 13.9 % (11.6-17.2); WHITE BLOOD COUNT 7.1 TH/MM3 (4.0-11.0)
[2017-04-12 23:52] LABS: APTT (PATIENT) 26.6 SEC (24.3-30.1); PROTHROMBIN TIME - PATIENT 11.1 SEC (9.8-11.6)
[2017-04-12 23:53] LABS: BACTERIA, URINE RARE /hpf; BLOOD, URINE MOD (NEG); COMMENT (UR) CULTURE INDICATED; CULTURE IF INDICATED CULTURE INDICATED; GLUCOSE,URINE NEG (NEG); KETONE, URINE TRACE mg/dL (NEG); NITRITE,URINE NEG (NEG); URINE COLOR YELLOW (YELLW/STRAW)
[2017-04-12 23:56] LABS: BICARBONATE 31.5 MEQ/L (21.0-32.0); POTASSIUM 4.4 MEQ/L (3.5-5.1)
--- NOTE | 2017-04-13 00:18 | PD ---
Data Data Last Documented VS Vital Signs Date Time Temp Pulse Resp B/P (MAP) Pulse Ox O2 Delivery O2 Flow Rate FiO2 04/13/17 01:29 04/12/17 23:20 83 18 98 Room Air 04/12/17 22:46 99.6 Orders Orders Urinalysis - C+S If Indicated (04/12/17 22:13) Complete Blood Count With Diff (04/12/17 22:17) Basic Metabolic Panel (Bmp) (04/12/17 22:17) ^ Insert Iv (04/12/17 22:17) Acetaminophen (Tylenol) (04/12/17 22:45) Coag Profile (04/12/17 22:43) Urine Culture (04/12/17 23:04) Labs Laboratory Tests Test 04/12/17 23:04 04/12/17 23:05 Urine Color YELLOW Urine Turbidity CLEAR Urine pH 7.0 Urine Specific [place] 1.011 Urine Protein 30 mg/dL Urine Glucose (UA) NEG mg/dL Urine Ketones [place] mg/dL Urine Occult Blood MOD Urine Nitrite NEG Urine Bilirubin NEG Urine Urobilinogen LESS THAN 2.0 MG/DL Urine Leukocyte Esterase [place]ACE Urine RBC /hpf Urine WBC 24 /hpf Urine Bacteria RARE /hpf Microscopic Urinalysis Comment CULTURE INDICATED White Blood Count 7.1 TH/MM3 Red Blood Count 4.75 MIL/MM3 Hemoglobin 14.3 GM/DL Hematocrit 44.3 % Mean Corpuscular Volume 93.2 FL Mean Corpuscular Hemoglobin 30.2 PG Mean Corpuscular Hemoglobin Concent 32.4 % Red Cell Distribution Width 13.9 % Platelet Count 186 TH/MM3 Mean Platelet Volume 7.0 FL Neutrophils (%) (Auto) 77.9 % Lymphocytes (%) (Auto) 8.9 % Monocytes (%) (Auto) 11.6 % Eosinophils (%) (Auto) 0.4 % Basophils (%) (Auto) 1.2 % Neutrophils # (Auto) 5.5 TH/MM3 Lymphocytes # (Auto) 0.6 TH/MM3 Monocytes # (Auto) 0.8 TH/MM3 Eosinophils # (Auto) 0.0 TH/MM3 Basophils # (Auto) 0.1 TH/MM3 CBC Comment DIFF FINAL Differential Comment Prothrombin Time 11.1 SEC Prothromb Time International Ratio 1.0 RATIO Activated Partial Thromboplast Time 26.6 SEC Blood Urea Nitrogen 15 MG/DL Creatinine 1.20 MG/DL Random Glucose 94 MG/DL Calcium Level 8.6 MG/DL Sodium Level 139 MEQ/L Potassium Level 4.4 MEQ/L Chloride Level 104 MEQ/L Carbon Dioxide Level 31.5 MEQ/L Anion Gap 4 MEQ/L Estimat Glomerular Filtration Rate 57 ML/MIN MDM Supervised Visit with NGUYEN: Yes Narrative Course Patient care assumed from Raysa Villalobos at 2300. This is a 87-year-old male since emergency department with hematuria and urinary frequency after having a cystoscopy earlier today. He denies any pain denies any fevers but does endorse some chills at home. Initial workup here in emergency department as remarkable only for hematuria. He does have some white blood cells in his urine but these are probably bloody and not in response to infection. He appears well in no distress. At this point discussed that he needs to follow- up with his urologist. No no further workup is indicated in the emergency department. He stable for discharge. Diagnosis Primary Impression: Hematuria Qualified Codes: R31.9 - Hematuria, unspecified Disposition: DISCHARGE HOME Condition: Stable Joe Doherty MD Apr 13, 2017 00:18
== END 2017-04-13 01:30 | disposition home or self-care (01) ==
LOC: NEPE 21:53
DX: R31.9 Hematuria, unspecified (principal); I48.91 Unspecified atrial fibrillation
CPT/HCPCS: 80048; 81001; 85025; 85610; 85730; 87086; 99283

== ENCOUNTER 2017-11-24 17:56 | Emergency (ER) | payer MEDICARE, BC ==
[~2017-11-24] VITALS: Ht 182.9 cm; Wt 81.1 kg
[~2017-11-24 17:56] MED LIST changes: -PAXI10TA2 PO; +PAXI10TA8 PO
[2017-11-24 18:00] VITALS: BP 143/76; PULSE 71; RESP 16; TEMP 97.4; O2SAT 97
[2017-11-24 18:26] LABS: BILIRUBIN, URINE NEG (NEG); BLOOD, URINE TRACE (NEG); GLUCOSE,URINE NEG (NEG); KETONE, URINE NEG (NEG); NITRITE,URINE NEG (NEG); URINE COLOR YELLOW (YELLW/STRAW); URINE LEUKOCYTE ESTERASE SMALL (NEG)
[2017-11-24] MEDS ORDERED: SODIUM CHLORIDE 0.9% FLUSH 10 ML FLUSH IV FLUSH PRN (18:30)
[2017-11-24 18:32] LABS: BACTERIA, URINE OCC /hpf; SQUAMOUS EPITHELIAL CELL URINE 0-5 /hpf (0-5); WHITE BLOOD CELL CLUMPS FEW
[2017-11-24 18:38] VITALS: O2SAT 97
--- NOTE | 2017-11-24 18:38 | PD ---
HPI Chief Complaint: Complaint Time Seen by Provider: 18:01 Travel History International Travel<30 days: No Contact w/Intl Traveler<30days: No Traveled to known affect area: No History of Present Illness HPI The patient is an 87 year old male who arrives with urinary frequency. He denies dysuria. He notes large volume of urine with every void. He describes worse than normal hunger and worse than normal thirst. He has a history of UTIs and states today's episode is different. No fever nausea vomiting. PFSH Past Medical History Arthritis: Yes Asthma: No Autoimmune Disease: No Blood Disorders: No Anxiety: Yes (OCD) Depression: Yes Heart Rhythm Problems: Yes (A-Fib) Cancer: No Cardiovascular Problems: Yes (htn on meds, a-fib) High Cholesterol: No Chemotherapy: No Chest Pain: No Congestive Heart Failure: No COPD: No Cerebrovascular Accident: Yes Diabetes: No Diminished Hearing: Yes Endocrine: No Gastrointestinal Disorders: Yes (PRESENT DAY PROBLEM CHEWING ) GERD: No Genitourinary: Yes Headaches: No Hiatal Hernia: No Hypertension: Yes Immune Disorder: No Implanted Vascular Access Dvce: Yes Kidney Stones: Yes Musculoskeletal: Yes (broken r. wrist 50 yrs ago, RECENT RT KNEE SURGERY) Neurologic: Yes (LOST OF BALANCE) Reproductive: No Respiratory: No Immunizations Current: Yes Migraines: No Radiation Therapy: No Renal Failure: No Seizures: No Sickle Cell Disease: No Sleep Apnea: No Thyroid Disease: No Ulcer: No Tetanus Vaccination: < 5 Years Influenza Vaccination: Yes Past Surgical History Abdominal Surgery: No AICD: No Arteriovenous Shunt: No Body Medical Devices: stent r side dr madera BLADDER STIMULATOR DOESNT WORK Cardiac Surgery: No Ear Surgery: No Endocrine Surgery: No Eye Surgery: No Genitourinary Surgery: Yes (microwave for prostate to shrink it, CYSTOSCOPY) Gynecologic Surgery: No Insulin Pump: No Joint Replacement: Yes (TKR) Neurologic Surgery: No Oral Surgery: No Pacemaker: No Prostatectomy: Yes Thoracic Surgery: No Social History Alcohol Use: No Tobacco Use: No Substance Use: No Allergies-Medications (Allergen,Severity, Reaction): Coded Allergies: No Known Allergies (Verified Adverse Reaction, Unknown, 11/24/17) Reported Meds & Prescriptions Reported Meds & Active Scripts Active Cipro (Ciprofloxacin HCl) 500 Mg Tab 500 Mg PO BID 7 Days Reported Xanax (Alprazolam) 0.5 Mg Tab 0.25 Mg PO HS Flomax (Tamsulosin HCl) 0.4 Mg Cap 0.4 Mg PO HS Paxil (Paroxetine HCl) 10 Mg Tab 10 Mg PO HS Namenda Xr (Memantine) 28 Mg Caper 28 Mg PO DAILY Bupropion HCl ER 24 HR (Bupropion HCl) 300 Mg Tab 300 Mg PO DAILY Review of Systems Except as stated in HPI: all other systems reviewed are Neg General / Constitutional: No: Fever Physical Exam Narrative GENERAL: 87-year-old male well-nourished well-developed no acute distress Vital Signs Date Time Temp Pulse Resp B/P (MAP) Pulse Ox O2 Delivery O2 Flow Rate FiO2 11/24/17 18:00 97.4 71 16 143/76 (98) 97 SKIN: Warm and dry. HEAD: Atraumatic. Normocephalic. EYES: Pupils equal and round. No scleral icterus. No injection or drainage. ENT: No nasal bleeding or discharge. Mucous membranes pink and moist. NECK: Trachea midline. No JVD. CARDIOVASCULAR: Regular rate and rhythm. RESPIRATORY: No accessory muscle use. Clear to auscultation. Breath sounds equal bilaterally. GASTROINTESTINAL: Soft. No focus of tenderness. MUSCULOSKELETAL: Extremities without clubbing, cyanosis, or edema. No obvious deformities. NEUROLOGICAL: Awake and alert. No obvious cranial nerve deficits. Motor grossly within normal limits. Five out of 5 muscle strength in the arms and legs. Normal speech. PSYCHIATRIC: Appropriate mood and affect; insight and judgment normal. Data Data Last Documented VS Vital Signs Date Time Temp Pulse Resp B/P (MAP) Pulse Ox O2 Delivery O2 Flow Rate FiO2 11/24/17 18:39 58 20 149/76 (100) 97 Room Air 11/24/17 18:00 97.4 Orders Orders Urinalysis - C+S If Indicated (11/24/17 17:59) Basic Metabolic Panel (Bmp) (11/24/17 18:21) Complete Blood Count With Diff (11/24/17 18:21) Iv Access Insert/Monitor (11/24/17 18:21) Ecg Monitoring (11/24/17 18:21) Oximetry (11/24/17 18:21) Sodium Chloride 0.9% Flush (Ns Flush) (11/24/17 18:30) Urine Culture (11/24/17 18:15) Ceftriaxone Inj (Rocephin Inj) (11/24/17 18:45) Labs Laboratory Tests Test 11/24/17 18:15 11/24/17 18:30 Urine Color YELLOW Urine Turbidity CLEAR Urine pH 5.0 Urine Specific [place] 1.025 Urine Protein NEG mg/dL Urine Glucose (UA) NEG mg/dL Urine Ketones NEG mg/dL Urine Occult Blood TRACE Urine Nitrite NEG Urine Bilirubin NEG Urine Urobilinogen 0.2 MG/DL Urine Leukocyte Esterase SMALL Urine RBC 3-5 /hpf Urine WBC 20-24 /hpf Urine WBC Clumps FEW Urine Squamous Epithelial Cells 0-5 /hpf Urine Bacteria OCC /hpf Microscopic Urinalysis Comment CULTURE INDICATED White Blood Count 5.5 TH/MM3 Red Blood Count 4.28 MIL/MM3 Hemoglobin 13.2 GM/DL Hematocrit 39.8 % Mean Corpuscular Volume 92.9 FL Mean Corpuscular Hemoglobin 30.8 PG Mean Corpuscular Hemoglobin Concent 33.2 % Red Cell Distribution Width 13.2 % Platelet Count 194 TH/MM3 Mean Platelet Volume 7.5 FL Neutrophils (%) (Auto) 69.1 % Lymphocytes (%) (Auto) 18.9 % Monocytes (%) (Auto) 10.0 % Eosinophils (%) (Auto) 1.0 % Basophils (%) (Auto) 1.0 % Neutrophils # (Auto) 3.8 TH/MM3 Lymphocytes # (Auto) 1.0 TH/MM3 Monocytes # (Auto) 0.5 TH/MM3 Eosinophils # (Auto) 0.1 TH/MM3 Basophils # (Auto) 0.1 TH/MM3 CBC Comment DIFF FINAL Differential Comment Blood Urea Nitrogen 28 MG/DL Creatinine 1.30 MG/DL Random Glucose 93 MG/DL Calcium Level 8.6 MG/DL Sodium Level 141 MEQ/L Potassium Level 4.2 MEQ/L Chloride Level 107 MEQ/L Carbon Dioxide Level 27.8 MEQ/L Anion Gap 6 MEQ/L Estimat Glomerular Filtration Rate 52 ML/MIN MDM Medical Decision Making Medical Screen Exam Complete: Yes Emergency Medical Condition: Yes Medical Record Reviewed: Yes Differential Diagnosis UTI, electrolyte imbalance, anemia, diabetes Narrative Course UA: UTI present Cipro prescribed Diagnosis Primary Impression: UTI (urinary tract infection) Qualified Codes: N30.00 - Acute cystitis without hematuria Additional Impression: Dehydration Referrals: Primary Care Physician call for appointment Med/Other Pt SpecificInfo: Prescription(s) given Scripts Ciprofloxacin (Cipro) 500 Mg Tab 500 MG PO BID for Infection for 7 Days, #14 TAB 0 Refills Prov: Holger Jara MD 11/24/17 Disposition: 01 DISCHARGE HOME Condition: Stable Holger Jara MD Nov 24, 2017 18:38
[2017-11-24 18:39] VITALS: BP 149/76; PULSE 58; RESP 20; O2SAT 97
[2017-11-24 18:44] LABS: AUTOMATED NEUTROPHIL # 3.8 TH/MM3 (1.8-7.7); BASOPHIL # 0.1 TH/MM3 (0-0.2); EOSINOPHIL # 0.1 TH/MM3 (0-0.4); HEMATOCRIT 39.8 % (39.0-51.0); HEMOGLOBIN 13.2 GM/DL (13.0-17.0); LYMPH % 18.9 % (9.0-44.0); MEAN CELL VOLUME 92.9 FL (80.0-100.0); MEAN CORPUSCULAR HEMOGLOBIN 30.8 PG (27.0-34.0); MEAN CORPUSCULAR HGB CONC 33.2 % (32.0-36.0); MEAN PLATELET VOLUME 7.5 FL (7.0-11.0); MONOCYTE # 0.5 TH/MM3 (0-0.9); NEUT % 69.1 % (16.0-70.0); PLATELET COUNT 194 TH/MM3 (150-450); RED BLOOD COUNT 4.28 MIL/MM3 (4.50-5.90); RED CELL DISTRIBUTION WIDTH 13.2 % (11.6-17.2); WHITE BLOOD COUNT 5.5 TH/MM3 (4.0-11.0)
[2017-11-24] MEDS ORDERED: CIPR-9 PO (18:44)
[2017-11-24] MEDS ORDERED: cefTRIAXone INJ 1,000 MG in SODIUM CHLORIDE 0.9% INJ 100 ML IV ONE (18:45)
[2017-11-24 18:55] LABS: CALCIUM 8.6 MG/DL (8.5-10.1)
[2017-11-24 18:56] LABS: BICARBONATE 27.8 MEQ/L (21.0-32.0)
[2017-11-24 18:59] LABS: CREATININE 1.3 MG/DL (0.60-1.30)
[2017-11-24] MEDS ORDERED: SODIUM CHLOR 0.9% 1000 ML INJ 1,000 ML IV ONE (19:00)
[2017-11-24 20:17] VITALS: BP 172/75
== END 2017-11-24 20:20 | disposition home or self-care (01) ==
LOC: PHED 17:56
DX: N39.0 Urinary tract infection, site not specified (principal); A49.01 Methicillin susceptible Staphylococcus aureus infection, unspecified site; E86.0 Dehydration; F42.9 Obsessive-compulsive disorder, unspecified; I10 Essential (primary) hypertension; I48.91 Unspecified atrial fibrillation; M19.90 Unspecified osteoarthritis, unspecified site; Z86.73 Personal history of transient ischemic attack (TIA), and cerebral infarction without residual deficits; Z87.442 Personal history of urinary calculi
CPT/HCPCS: 80048; 81001; 85025; 86403; 87077; 87086; 87186; 96361; 96365; 99284; J0696; J7030

== ENCOUNTER 2017-12-08 12:26 | Emergency (ER) | payer MEDICARE, BC ==
[~2017-12-08 12:26] MED LIST changes: -ASPI-147 PO; +CIPR-9 PO; -MACR100C2 PO
[2017-12-08 12:34] VITALS: BP 163/76; PULSE 75; RESP 16; TEMP 97.7; O2SAT 98
[2017-12-08] MEDS ORDERED: KLOR10TA PO (13:01)
[2017-12-08] MEDS ORDERED: FURO1TAB62 PO (13:01)
[2017-12-08] MEDS ORDERED: AMLO2.5T PO (13:01)
[2017-12-08] MEDS ORDERED: LOSA50TA PO (13:01)
[2017-12-08 13:03] LABS: BILIRUBIN, URINE NEG (NEG); BLOOD, URINE NEG (NEG); GLUCOSE,URINE NEG (NEG); KETONE, URINE NEG (NEG); NITRITE,URINE NEG (NEG); URINE COLOR YELLOW (YELLW/STRAW); URINE LEUKOCYTE ESTERASE SMALL (NEG)
[2017-12-08 13:27] LABS: WHITE BLOOD CELL CLUMPS RARE
[2017-12-08 13:28] LABS: BACTERIA, URINE OCC /hpf; SQUAMOUS EPITHELIAL CELL URINE 0-2 /hpf (0-5)
[2017-12-08] MEDS ORDERED: MORPHINE SULFATE 4 MG/ML INJ IV PUSH ONE (13:30)
[2017-12-08] MEDS ORDERED: METOCLOPRAMIDE INJ 10 MG in SODIUM CHLORIDE 0.9% INJ 50 ML IV ONE (13:30)
[2017-12-08 14:11] LABS: AUTOMATED NEUTROPHIL # 4.5 TH/MM3 (1.8-7.7); BASOPHIL % 0.7 % (0.0-2.0); EOSINOPHIL # 0.1 TH/MM3 (0-0.4); HEMATOCRIT 40.2 % (39.0-51.0); HEMOGLOBIN 13.2 GM/DL (13.0-17.0); LYMPH % 16.3 % (9.0-44.0); MEAN CELL VOLUME 92.2 FL (80.0-100.0); MEAN CORPUSCULAR HEMOGLOBIN 30.3 PG (27.0-34.0); MEAN CORPUSCULAR HGB CONC 32.9 % (32.0-36.0); MEAN PLATELET VOLUME 7.8 FL (7.0-11.0); MONO % 10.9 % (0.0-8.0); MONOCYTE # 0.7 TH/MM3 (0-0.9); NEUT % 71.1 % (16.0-70.0); PLATELET COUNT 175 TH/MM3 (150-450); RED BLOOD COUNT 4.36 MIL/MM3 (4.50-5.90); RED CELL DISTRIBUTION WIDTH 13.4 % (11.6-17.2); WHITE BLOOD COUNT 6.3 TH/MM3 (4.0-11.0)
[2017-12-08 14:32] LABS: CHLORIDE 108 MEQ/L (98-107); SODIUM (NA) 143 MEQ/L (136-145)
[2017-12-08 14:36] LABS: ALBUMIN 3.1 GM/DL (3.4-5.0); CALCIUM 8.7 MG/DL (8.5-10.1); GLUCOSE,RANDOM 98 MG/DL (74-106)
[2017-12-08 14:37] LABS: BLOOD UREA NITROGEN 22 MG/DL (7-18)
[2017-12-08 14:39] LABS: ALT (GPT) 89 U/L (12-78); AST (GOT) 179 U/L (15-37); GLOMERULAR FILTRATION RATE 63 ML/MIN (>89)
[2017-12-08 14:41] LABS: TOTAL BILIRUBIN ADULT 1.1 MG/DL (0.2-1.0)
[2017-12-08 14:42] LABS: ALKALINE PHOSPHATASE 242 U/L (45-117)
[2017-12-08] MEDS ORDERED: IOHEXOL 350 MG/ML 10 ML VIAL (for RAD DIAG) IVCONTRAST ONE (14:59)
--- NOTE | 2017-12-08 15:14 | RADRPT ---
EXAM DATE/TIME: 12/08/2017 14:50 [facility] COMPARISON: CT ABDOMEN & PELVIS W CONTRAST, January 03, 2015, 12:48. INDICATIONS : Upper abdominal pain and vomiting. IV CONTRAST: 75 cc Omnipaque 350 (iohexol) IV ORAL CONTRAST: No oral contrast ingested. RADIATION DOSE: 12.97 CTDIvol (mGy) MEDICAL HISTORY : Hypertension. Renal calculi. SURGICAL HISTORY : Bladder stimulator. Prostate shrunk. ENCOUNTER: Initial ACUITY: 2 days PAIN SCALE: 5/10 LOCATION: pelvis abdomen TECHNIQUE: Volumetric scanning of the abdomen and pelvis was performed. Using automated exposure control and ad justment of the mA and/or kV according to patient size, radiation dose was kept as low as reasonably achievable to obtain optimal diagnostic quality images. DICOM format image data is available electro nically for review and comparison. FINDINGS: The lower lungs are clear. Moderate stool is present throughout the colon. Hepatic flexure lies anterior to the liver The liver is free of focal defects. Large gallstone benign appearing gallbladder Spleen and pancreas are unremarkable Adrenal glands appear normal 3 number stone right kidney without obstruction One similar right renal cyst 1.5 similar left renal cyst or parapelvic cyst. No stone. There is no ascites or adenopathy Moderate vascular calcification descending aorta measuring 3.1 cm No inflammatory changes in the abdomen Bilateral inguinal hernias both containing bowel larger on the left than the right No contents otherwise unremarkable CONCLUSION: 1. Bilateral hernias both containing bowel 2. Nonobstructing right renal stone 3. Large gallstone benign appearing gallbladder 4. Moderate vascular calcifications abdominal aortic small aneurysm Francisco Liang MD FACR on December 08, 2017 at 15:09 Board Certified Radiologist. This report was verified electronically.
--- NOTE | 2017-12-08 15:32 | PD ---
HPI Chief Complaint: Abdominal Pain Time Seen by Provider: 13:11 Travel History International Travel<30 days: No Contact w/Intl Traveler<30days: No Traveled to known affect area: No History of Present Illness HPI 87yo M here with c/o epigastric abdominal pain, nausea and vomiting since last night. Pt said he has chronic UTI and has been feeling stress taking care of his who has dementia. Denies any fever, chest pain, sob, focal weakness or numbness. PFSH Past Medical History Arthritis: Yes Asthma: No Autoimmune Disease: No Blood Disorders: No Anxiety: Yes (OCD) Depression: Yes Heart Rhythm Problems: Yes (A-Fib) Cancer: No Cardiovascular Problems: Yes (htn on meds, a-fib) High Cholesterol: No Chemotherapy: No Chest Pain: No Congestive Heart Failure: No COPD: No Cerebrovascular Accident: Yes Diabetes: No Diminished Hearing: No Endocrine: No Gastrointestinal Disorders: Yes (PRESENT DAY PROBLEM CHEWING ) GERD: No Genitourinary: Yes Headaches: No Hiatal Hernia: No Hypertension: Yes Immune Disorder: No Implanted Vascular Access Dvce: Yes Kidney Stones: Yes Medical other: Yes (POOR HISTORIAN) Musculoskeletal: Yes (broken r. wrist 50 yrs ago, RECENT RT KNEE SURGERY) Neurologic: Yes (LOST OF BALANCE) Reproductive: No Respiratory: No Immunizations Current: Yes Migraines: No Radiation Therapy: No Renal Failure: No Seizures: No Sickle Cell Disease: No Sleep Apnea: No Thyroid Disease: No Ulcer: No Past Surgical History Abdominal Surgery: No AICD: No Arteriovenous Shunt: No Body Medical Devices: stent r side dr madera BLADDER STIMULATOR DOESNT WORK Cardiac Surgery: No Ear Surgery: No Endocrine Surgery: No Eye Surgery: No Genitourinary Surgery: Yes (microwave for prostate to shrink it, CYSTOSCOPY) Gynecologic Surgery: No Insulin Pump: No Joint Replacement: Yes (TKR right) Neurologic Surgery: No Oral Surgery: No Pacemaker: No Prostatectomy: Yes Thoracic Surgery: No Social History Alcohol Use: No Tobacco Use: No (never) Substance Use: No Allergies-Medications (Allergen,Severity, Reaction): Coded Allergies: No Known Allergies (Verified Adverse Reaction, Unknown, 12/08/17) Reported Meds & Prescriptions Reported Meds & Active Scripts Active Macrobid (Nitrofurantoin Monoh/Nitrofur Macro) 100 Mg Cap 100 Mg PO BID 5 Days Reported Losartan (Losartan Potassium) 50 Mg Tab 50 Mg PO DAILY Amlodipine (Amlodipine Besylate) 2.5 Mg Tab 2.5 Mg PO DAILY Lasix (Furosemide) 20 Mg Tab 20 Mg PO DAILY Klor-Con 10 (Potassium Chloride) 10 Meq Tab 10 Meq PO DAILY Flomax (Tamsulosin HCl) 0.4 Mg Cap 0.4 Mg PO HS Paxil (Paroxetine HCl) 10 Mg Tab 10 Mg PO HS Namenda Xr (Memantine) 28 Mg Caper 28 Mg PO DAILY Bupropion HCl ER 24 HR (Bupropion HCl) 300 Mg Tab 300 Mg PO DAILY Review of Systems Except as stated in HPI: all other systems reviewed are Neg Physical Exam Narrative GENERAL: 87yo M in moderate distress. SKIN: Focused skin assessment warm/dry. HEAD: Atraumatic. Normocephalic. EYES: Pupils equal and round. No scleral icterus. No injection or drainage. ENT: No nasal bleeding or discharge. Mucous membranes pink and moist. NECK: Trachea midline. No JVD. CARDIOVASCULAR: Regular rate and rhythm. No murmur appreciated. RESPIRATORY: No accessory muscle use. Clear to auscultation. Breath sounds equal bilaterally. GASTROINTESTINAL: Abdomen soft, +TTP epigastric region. No rebound tenderness or guarding. MUSCULOSKELETAL: No obvious deformities. No clubbing. No cyanosis. No edema. NEUROLOGICAL: Awake and alert. No obvious cranial nerve deficits. Motor grossly within normal limits. Normal speech. PSYCHIATRIC: Appropriate mood and affect; insight and judgment normal. Data Data Last Documented VS Vital Signs Date Time Temp Pulse Resp B/P (MAP) Pulse Ox O2 Delivery O2 Flow Rate FiO2 12/08/17 16:23 62 16 164/79 (107) 97 Room Air 12/08/17 12:34 97.7 Orders Orders Urinalysis - C+S If Indicated (12/08/17 12:33) Complete Blood Count With Diff (12/08/17 13:16) Comprehensive Metabolic Panel (12/08/17 13:16) Lipase (12/08/17 13:16) Prothrombin Time / Inr (Pt) (12/08/17 13:16) Act Partial Throm Time (Ptt) (12/08/17 13:16) Ct Abd/Pel W Iv Contrast(Rout) (12/08/17 13:16) Morphine Inj (Morphine Inj) (12/08/17 13:30) Electrocardiogram (12/08/17 13:16) Metoclopramide Inj (Reglan Inj) (12/08/17 13:30) Urine Culture (12/08/17 12:45) Iohexol 350 Inj (Omnipaque 350 Inj) (12/08/17 14:59) Nitrofurantoin Monohyd Macrocr (Macrobid (12/08/17 16:30) Ed Discharge Order (12/08/17 16:59) Labs Laboratory Tests Test 12/08/17 12:45 12/08/17 13:25 Urine Collection Type VOIDED Urine Color YELLOW Urine Turbidity CLEAR Urine pH 6.0 Urine Specific [place] 1.020 Urine Protein NEG mg/dL Urine Glucose (UA) NEG mg/dL Urine Ketones NEG mg/dL Urine Occult Blood NEG Urine Nitrite NEG Urine Bilirubin NEG Urine Urobilinogen 0.2 MG/DL Urine Leukocyte Esterase SMALL Urine WBC 6-8 /hpf Urine WBC Clumps RARE Urine Squamous Epithelial Cells 0-2 /hpf Urine Bacteria OCC /hpf Microscopic Urinalysis Comment CULTURE INDICATED White Blood Count 6.3 TH/MM3 Red Blood Count 4.36 MIL/MM3 Hemoglobin 13.2 GM/DL Hematocrit 40.2 % Mean Corpuscular Volume 92.2 FL Mean Corpuscular Hemoglobin 30.3 PG Mean Corpuscular Hemoglobin Concent 32.9 % Red Cell Distribution Width 13.4 % Platelet Count 175 TH/MM3 Mean Platelet Volume 7.8 FL Neutrophils (%) (Auto) 71.1 % Lymphocytes (%) (Auto) 16.3 % Monocytes (%) (Auto) 10.9 % Eosinophils (%) (Auto) 1.0 % Basophils (%) (Auto) 0.7 % Neutrophils # (Auto) 4.5 TH/MM3 Lymphocytes # (Auto) 1.0 TH/MM3 Monocytes # (Auto) 0.7 TH/MM3 Eosinophils # (Auto) 0.1 TH/MM3 Basophils # (Auto) 0.0 TH/MM3 CBC Comment DIFF FINAL Differential Comment Prothrombin Time 10.6 SEC Prothromb Time International Ratio 1.0 RATIO Activated Partial Thromboplast Time 25.0 SEC Blood Urea Nitrogen 22 MG/DL Creatinine 1.10 MG/DL Random Glucose 98 MG/DL Total Protein 7.0 GM/DL Albumin 3.1 GM/DL Calcium Level 8.7 MG/DL Alkaline Phosphatase 242 U/L Aspartate Amino Transf (AST/SGOT) 179 U/L Alanine Aminotransferase (ALT/SGPT) 89 U/L Total Bilirubin 1.1 MG/DL Sodium Level 143 MEQ/L Potassium Level 4.6 MEQ/L Chloride Level 108 MEQ/L Carbon Dioxide Level 30.0 MEQ/L Anion Gap 5 MEQ/L Estimat Glomerular Filtration Rate 63 ML/MIN Lipase 159 U/L [facility] Medical Decision Making Medical Screen Exam Complete: Yes Emergency Medical Condition: Yes Interpretation(s) EKG: NSR 66bpm. 1st AV block. TWI III. No significant ST elevation or depression. Differential Diagnosis Pancreatitis vs. obstruction vs. gastritis Narrative Course 87yo M with nausea, vomiting and epigastric abdominal pain. Pt was actively vomiting when he got to the ED. Labs reviewed, no leukocytosis. H/H normal. Liver enzymes elevated with AST at 179 and ALT 89. Lipase normal. UA showed rare WBC. WBC 6-8. Culture indicated. CT a/p showed bilateral inguinal hernias both containing bowel larger on the left than the right. Pt has a soft , easily reducible left inguinal hernia on exam. No pain on palpation. Also no pain in right inguinal region. Nonobstructing right renal stone. Large gallstone benign appearing gallbladder. Moderate vascular calcifications abdominal aortic small aneurysm. Pt given 2mg of morphine as well as reglan IV. Pt reevaluated at bedside and denies any more abdominal pain or nausea. Pt given macrobid and is tolerating PO. He is very well appearing and symptoms have resolve. Will have pt orally hydrate and follow up with pulmonary fellow for elevated liver enzymes and epigastric pain. I discussed with Dr. Sullivan from GI and he recommends that pt call his office tomorrow and see him there tomorrow. Also recommends pt see general surgery for the large gallstone. Pt verbalize understanding and said he will call tomorrow. Said he will come back if his symptoms return. Return precautions given. Diagnosis Primary Impression: UTI (urinary tract infection) Qualified Codes: N39.0 - Urinary tract infection, site not specified Additional Impression: Elevated liver enzymes Referrals: Chauncey Luis MD call for appointment Large gallstone. Recommend by GI that pt see general surgery as well. Delmis Sullivan MD call for appointment Elevated liver enzyme and epigastric abdominal pain that has resolved. Patient Instructions: General Instructions Departure Forms: Tests/Procedures Additional Instructions: Please call Dr. Sullivan tomorrow morning and follow up with him for further evaluation of your epigastric abdominal pain and elevated liver enzymes. Please also follow up with general surgery for large gallstone and elevated liver enzyme as well as the inguinal hernias seen on CT scan. Please take medications for urine infection and follow up with your primary care physician. Med/Other Pt SpecificInfo: Prescription(s) given Scripts Nitrofurantoin Monohydrate Macrocrystals (Macrobid) 100 Mg Cap 100 MG PO BID for Infection for 5 Days, #10 CAP 0 Refills Prov: Macy Siddiqi DO 12/08/17 Disposition: 01 DISCHARGE HOME Condition: Stable Macy Siddiqi DO December 08, 2017 15:32
[2017-12-08 15:57] LABS: PROTHROMBIN TIME - PATIENT 10.6 SEC (9.8-11.6)
[2017-12-08 16:23] VITALS: BP 164/79; PULSE 62; RESP 16; O2SAT 97
[2017-12-08] MEDS ORDERED: MACR100C2 PO (16:29)
[2017-12-08] MEDS ORDERED: NITROFURANTOIN MONOHYD MACROCR 100 MG CAP PO ONE (16:30)
--- NOTE | 2017-12-09 20:14 | EKG ---
Date Performed: 12/08/2017 Time Performed: 13:33:09 PTAGE: 87 years EKG: Sinus rhythm WITH FIRST DEGREE AV BLOCK CONSIDER ANTERIOR AND INFERIOR SEPTAL MYOCARDIAL INFARCTION-age indertemi earline. ABNORMAL ECG PREVIOUS TRACING : 07/28/2016 21.31 DOCTOR: Ab Hays Interpretating Date/Time 12/09/2017 20:12:14
== END 2017-12-08 17:27 | disposition home or self-care (01) ==
LOC: PHED 12:26
DX: N39.0 Urinary tract infection, site not specified (principal); B95.61 Methicillin susceptible Staphylococcus aureus infection as the cause of diseases classified elsewhere; R74.8 Abnormal levels of other serum enzymes; R94.31 Abnormal electrocardiogram [ECG] [EKG]; K40.90 Unilateral inguinal hernia, without obstruction or gangrene, not specified as recurrent; F42.9 Obsessive-compulsive disorder, unspecified; F32.9 Major depressive disorder, single episode, unspecified; I10 Essential (primary) hypertension; I48.91 Unspecified atrial fibrillation
CPT/HCPCS: 74177; 80053; 81001; 83690; 85025; 85610; 85730; 86403; 87086; 87186; 93005; 96365; 96375; 99285; J2270; J2765; Q9967